=== PATIENT | male | born 1995 | race Caucasian/White ===

== ENCOUNTER 2017-05-12 02:19 | Emergency (ER) | payer SELFPAY ==
[~2017-05-12] VITALS: Ht 167.6 cm; Wt 61.2 kg
[2017-05-12 02:20] VITALS: BP 139/80
--- NOTE | 2017-05-12 02:20 | NUR ---
Pt placed in bed 5.
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
[2017-05-12 02:44] VITALS: BP 139/80
--- NOTE | 2017-05-12 02:44 | NUR ---
PATIENT EXAMINED BY DR. IRBY. PATIENT MEDICALLY CLEARED AND RELEASED IN CUSTODY IN STABLE CONDITION. ORIGINAL PRE-BOOK FORM GIVEN TO P OFFICER. DISCHARGE INSTRUCTED AND EXPLAINED TO PATIENT. PT VERBALIZED UNDERSTANDING. ADVISED TO FOLLOW UP WITH PMD.
== END 2017-05-12 02:44 ==
LOC: MED 02:19
DX: Z02.89 Encounter for other administrative examinations (principal)
CPT/HCPCS: 99283

== ENCOUNTER 2022-04-14 01:35 | Emergency (ER) | payer OTHER ==
[~2022-04-14] VITALS: Ht 172.7 cm; Wt 68.9 kg
[2022-04-14 01:42] VITALS: BP 142/88
--- NOTE | 2022-04-14 01:44 | NUR ---
PT BIB [facility], PREBOOK. TAKEN TO CHAIR
--- NOTE | 2022-04-14 02:29 | NUR ---
Dr. Cerda examining patient.
--- NOTE | 2022-04-14 02:31 | NUR ---
ermd assessing pt in [facility]
--- NOTE | 2022-04-14 02:48 | NUR ---
PT RETURN FROM XRAY
[2022-04-14 03:22] VITALS: BP 143/84
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
== END 2022-04-14 03:22 ==
LOC: MED 01:35
DX: F10.129 Alcohol abuse with intoxication, unspecified (principal); Z02.89 Encounter for other administrative examinations; V43.53XA Car driver injured in collision with pick-up truck in traffic accident, initial encounter; Y93.89 Activity, other specified; Y92.89 Other specified places as the place of occurrence of the external cause; Y99.8 Other external cause status
CPT/HCPCS: 71045; 99283